=== PATIENT | male | born 1955 | race Caucasian/White ===

== ENCOUNTER 2017-05-13 01:10 | Emergency (ER) | payer OTHER ==
[~2017-05-13] VITALS: Ht 180.3 cm; Wt 88.5 kg
[~2017-05-13 01:10] MED LIST: ALLO300T2 PO; AMI200 PO; COLC0.6T67 PO; COU2 PO; FOLI-43 PO; FURO-150 PO; IRON PO; LISI2.5T48 PO; METO25TA6 PO
[2017-05-13 02:00] VITALS: BP_SYST 121
[2017-05-13 02:20] VITALS: BP_SYST 121
== END 2017-05-13 02:35 | disposition home or self-care (01) ==
LOC: SED 01:10
DX: M54.5 Low back pain (principal); I25.2 Old myocardial infarction; Z86.73 Personal history of transient ischemic attack (TIA), and cerebral infarction without residual deficits; Z94.1 Heart transplant status; Z88.0 Allergy status to penicillin; Z79.899 Other long term (current) drug therapy
CPT/HCPCS: 99281